=== PATIENT | male | born 1975 | race African-American/Black ===

== ENCOUNTER 2016-12-05 11:27 | Emergency (ER) | payer OTHER, MEDICAID ==
[~2016-12-05] VITALS: Ht 185.4 cm; Wt 104.3 kg
[~2016-12-05 11:27] MED LIST: CEPHALEXIN500 MG ORAL; HM DOUBLE ANT28.4 G1 TP; IBUPROFEN800 MG ORAL; NKM
[2016-12-05 11:40] VITALS: BP 127/75
[2016-12-05 12:18] VITALS: BP 127/75
--- NOTE | 2016-12-05 12:20 | Emergency Room Report ---
History of Present Illness General Chief Complaint: Sore Throat Source: Patient Present Illness HPI 41-year-old male presents to the emergency department complaining of intermittent cough with mucus in addition to sore throat, nasal congestion times one week. currently pt. reports no pain. Patient denies fevers or chills he denies neck pain or stiffness denies headache, and states he is up-to-date with vaccinations and has no significant past medical history other than musculoskeletal injuries. he denies recent travel. Denies CP, Palpitations, LOC , AMS, dizziness, Changes in Vision, Sensation, paresthesias, or a sudden severe headache. Allergies: Coded Allergies: No Known Allergies (Unverified , 09/08/12) Patient History Past Medical History: see triage record Past Surgical History: none Pertinent Family History: none Immunizations: UTD Reviewed Nursing Documentation: PMH: Agreed, PSxH: Agreed Nursing Documentation-PMH Past Medical History: No Stated History Review of Systems All Other Systems: negative except mentioned in HPI Physical Exam Vital Signs Date Time Temp Pulse Resp B/P (MAP) Pulse Ox O2 Delivery O2 Flow Rate FiO2 12/05/16 11:34 99.0 76 14 127/75 98 Room Air Sp02 EP Interpretation: reviewed, normal General Appearance: no apparent distress, alert, GCS 15, non-toxic Head: normocephalic, atraumatic Eyes: bilateral eye normal inspection, bilateral eye PERRL ENT: hearing grossly normal, normal voice, TMs + canals normal, uvula midline, moist mucus membranes, nasal congestion, pharyngeal erythema Neck: full range of motion, supple/symm/no masses Respiratory: chest non-tender, lungs clear, normal breath sounds, speaking full sentences Cardiovascular #1: regular rate, rhythm Musculoskeletal: back normal, gait/station normal, normal range of motion, non- tender Neurologic: alert, oriented x3, responsive, motor strength/tone normal, sensory intact, speech normal Skin: normal color, no rash, warm/dry, well hydrated Lymphatic: no adenopathy Medical Decision Making PA Attestation Dr. jaime is my supervising Physician whom patient management has been discussed with. Diagnostic Impression: Primary Impression: Upper respiratory infection, viral ER Course 41-year-old male presents to the emergency department complaining of intermittent cough with mucus in addition to sore throat, nasal congestion times one week. currently pt. reports no pain. Patient denies fevers or chills he denies neck pain or stiffness denies headache, and states he is up-to-date with vaccinations and has no significant past medical history other than musculoskeletal injuries. he denies recent travel. Denies CP, Palpitations, LOC , AMS, dizziness, Changes in Vision, Sensation, paresthesias, or a sudden severe headache. Ddx considered but are not limited to URI, pneumonia, PE, strep pharyngitis, meningitis. Vital signs: Pt. is afebrile, the remaining VS are WNL H&PE are most consistent with URI- no meningeal signs, oropharynx is not involved, no evidence of bacterial infection at this time. ORDERS: none required at this time, the diagnosis is clinical ED INTERVENTIONS: None required at this time. --PT. EDUCATION: Discussed antibiotic resistance with inappropriate prescribing of antibiotics for viral illnesses. Discussed signs and symptoms to indicate viral illness versus bacterial illness. DISCHARGE: At this time pt. is stable for d/c to home. Will provide printed patient care instructions, and any necessary prescriptions. Care plan and follow up instructions have been discussed with the patient prior to discharge. Last Vital Signs Date Time Temp Pulse Resp B/P (MAP) Pulse Ox O2 Delivery O2 Flow Rate FiO2 12/05/16 11:40 99.0 14 127/75 98 Room Air 12/05/16 11:34 76 Disposition: HOME, SELF-CARE Condition: Stable Scripts Guaifenesin (Guaifenesin) 1,200 Mg Tab.er.12h 1200 MG PO Q12HR for 10 Days, #20 TAB Prov: Jazlyn Dao 12/05/16 Codeine/Promethazine Hcl* (PROMETHAZINE-CODEINE SYRUP*) 118 Ml Syrup 5 ML ORAL Q6H Y for For Cough, #120 ML 0 Refills Prov: Jazlyn Dao 12/05/16 Referrals: NON PHYSICIAN (PCP) Departure Forms: Return to Work Return to Work Date: Dec 07, 2016 Work Restrictions: None Return to Full Activity: Dec 07, 2016 Patient Instructions: Upper Respiratory Infection, Adult Additional Instructions: Take medications as directed. Follow up with a Primary Care Provider in 3-5 days, even if your symptoms have resolved. --Please review list of primary care clinics, if you do not already have a primary care provider Return sooner to ED if new symptoms occur, or current symptoms become worse. Do not drink alcohol, drive, or operate heavy machinery while taking Cough Syrup as this may cause drowsiness. - Please note that this Emergency Department Report was dictated using [employer] technology software, occasionally this can lead to erroneous entry secondary to interpretation by the dictation equipment. Jazlyn Dao Dec 05, 2016 12:20
[2016-12-05] MEDS ORDERED: PROMETHAZINE-C118 M1 ORAL (12:21)
[2016-12-05] MEDS ORDERED: GUAIFENESIN1200 MG PO (12:21)
== END 2016-12-05 12:30 | disposition home or self-care (01) ==
LOC: EMR 12:13
DX: J06.9 Acute upper respiratory infection, unspecified (principal)
CPT/HCPCS: 99283

== ENCOUNTER 2017-06-11 07:00 | Emergency (ER) | payer MEDICAID, OTHER ==
[~2017-06-11] VITALS: Ht 188 cm; Wt 102.1 kg
[~2017-06-11 07:00] MED LIST changes: +GUAIFENESIN1200 MG PO; +PROMETHAZINE-C118 M1 ORAL
[2017-06-11 07:20] VITALS: BP 124/73
[2017-06-11] MEDS ORDERED: HYDROcodone/Acetamin 10/325 tab ORAL ONE (07:30)
[2017-06-11] MEDS ORDERED: Methocarbamol 750mg tab ORAL ONE (07:30)
[2017-06-11] MEDS ORDERED: Ketorolac 60mg Inj IM ONE (07:30)
[2017-06-11] MEDS ORDERED: ACETAMINOPHEN-1 EAC1 ORAL (07:58)
[2017-06-11] MEDS ORDERED: ROBAXIN-750750 MG PO (07:58)
[2017-06-11] MEDS ORDERED: IBUPROFEN600 MG ORAL (07:58)
[2017-06-11 08:00] VITALS: BP 124/73
--- NOTE | 2017-06-11 08:19 | Emergency Room Report ---
History of Present Illness General Chief Complaint: Lower Back Pain or Injury Source: Patient Present Illness HPI Patient presents with left lower back pain He was eating something down did not give specifics of the object however about 1 foot off the floor patient was turning to the left And had increased pain to the left lower back region This happened about 1:00 in the afternoon yesterday He has been having increased spasming and discomfort since then denies any Loss of control of bowel or urination denies any paresthesia Denies any chest pain or short of breath Allergies: Coded Allergies: No Known Allergies (Unverified , 06/11/17) Patient History Past Medical History: see triage record Pertinent Family History: none Reviewed Nursing Documentation: PMH: Agreed; PSxH: Agreed Nursing Documentation-PMH Past Medical History: No Stated History Review of Systems All Other Systems: negative except mentioned in HPI Physical Exam Vital Signs Date Time Temp Pulse Resp B/P (MAP) Pulse Ox O2 Delivery O2 Flow Rate FiO2 06/11/17 07:06 97.8 59 16 124/73 98 Room Air 97.9 Sp02 EP Interpretation: reviewed, normal General Appearance: mild distress - In acute pain Head: normocephalic, atraumatic Eyes: bilateral eye PERRL, bilateral eye EOMI ENT: normal pharynx, no angioedema Neck: full range of motion, supple Respiratory: lungs clear Cardiovascular #1: regular rate, rhythm Gastrointestinal: non tender, soft Musculoskeletal: other - Increased spasming in the left para spinal region, tender on palpation L3-4 region, midline no step-off patient able to ambulate no obvious focal weakness Neurologic: alert, oriented x3, responsive, zipper ironer III-XII nml as tested Skin: normal color, no rash Lymphatic: no adenopathy Medical Decision Making Diagnostic Impression: Primary Impression: Low back pain ER Course Multiple differentials were considered Including but not limited to neurological, neurosurgical orthopedic, musculoskeletal pathology Patient's mechanism of injury appears to be consistent with muscle skeletal ligamental pathology There was no acute trauma and imaging has not been initially emergently obtained And patient will have conservative outpatient trial Last Vital Signs Date Time Temp Pulse Resp B/P (MAP) Pulse Ox O2 Delivery O2 Flow Rate FiO2 06/11/17 08:00 97.9 16 124/73 98 Room Air 208.2 06/11/17 07:06 59 Status: improved Disposition: HOME, SELF-CARE Condition: Improved Scripts Acetaminophen With Codeine (T#3) (TYLENOL #3 TAB*) Y Tab 1 TAB ORAL Q8H PRN for For Pain, #10 TAB Prov: Cortez Travis DO 06/11/17 Methocarbamol* (ROBAXIN-750*) 750 Mg Tablet 750 MG PO TID, #21 TAB 0 Refills Prov: Cortez Travis DO 06/11/17 Ibuprofen* (MOTRIN*) 600 Mg Tablet 600 MG ORAL Q8H PRN for For Pain, #20 TAB 0 Refills Prov: Cortez Travis DO 06/11/17 Referrals: NON PHYSICIAN (PCP) Patient Instructions: Lumbosacral Strain, Back Pain, Adult Additional Instructions: Patient is provided with the discharge instructions notified to follow up with primary doctor in the next 2-3 days otherwise return to the er with any worsening symptoms. Please note that this report is being documented using [employer] technology. This can lead to erroneous entry secondary to incorrect interpretation by the dictating instrument. Cortez Travis DO June 11, 2017 08:19
== END 2017-06-11 08:00 | disposition home or self-care (01) ==
LOC: EMR 07:20
DX: M54.5 Low back pain (principal)
CPT/HCPCS: 96372; 99284

== ENCOUNTER 2017-09-03 02:44 | Emergency (ER) | payer OTHER ==
[~2017-09-03] VITALS: Ht 185.4 cm; Wt 133.8 kg
[~2017-09-03 02:44] MED LIST changes: +ACETAMINOPHEN-1 EAC1 ORAL; +IBUPROFEN600 MG ORAL; +ROBAXIN-750750 MG PO
[2017-09-03 03:07] VITALS: BP 124/60
--- NOTE | 2017-09-03 03:52 | Emergency Room Report ---
History of Present Illness General Chief Complaint: General Complaint Source: Patient Present Illness HPI This patient is here c/o abd discomfort due to no bm for three days. He has had similar occasionally in the past. Normal flatus. Normal eating with fruits and vegetables (no change.) No fever, no trauma. His back "pain" is not back pain but he feels achy all over abd/back due to feeling bloated due to no bm. No vomiting. Normal daily activities. PMH: none Meds: none Allergies: Coded Allergies: No Known Allergies (Unverified , 06/11/17) Nursing Documentation-PMH Past Medical History: No Stated History Review of Systems Constitutional: Denies: fever Eye: Denies: acuity changes Respiratory: Denies: cough, shortness of breath Cardiovascular: Denies: chest pain Gastrointestinal: Denies: nausea, vomiting Skin: Denies: rash Neurological: Denies: headache Physical Exam Vital Signs Date Time Temp Pulse Resp B/P (MAP) Pulse Ox O2 Delivery O2 Flow Rate FiO2 09/03/17 02:57 98.0 70 16 122/60 99 Room Air 98.1 General Appearance: well appearing, no apparent distress Head: normocephalic, atraumatic ENT: hearing grossly normal, normal voice Neck: full range of motion, supple Respiratory: no respiratory distress, speaking full sentences Cardiovascular #1: normal inspection Gastrointestinal: normal inspection, normal bowel sounds, non tender, soft, no mass Musculoskeletal: normal inspection, no calf tenderness Neurologic: alert, normal gait Psychiatric: mood/affect normal Skin: no rash Medical Decision Making Diagnostic Impression: Primary Impression: Abdominal pain Last Vital Signs Date Time Temp Pulse Resp B/P (MAP) Pulse Ox O2 Delivery O2 Flow Rate FiO2 09/03/17 03:07 98.1 74 16 124/60 99 Room Air 98.1 Disposition: HOME, SELF-CARE Condition: Stable Referrals: NOT CHOSEN IPA/MD,REFERRING (PCP) Patient Instructions: Abdominal Pain, Adult Additional Instructions: 1. OK to try Benadryl 25-50 mg. at night to sleep. 2. OK to try Simethicone (Gas-X) 160 mg. as needed for gas pains. 3. Add psyllium (fiber) to diet. Metamucil. 4. Fruits, vegetables, water, exercise, and limit rice/bread. Maikol Shah M.D. Sep 03, 2017 03:52
[2017-09-03 04:07] VITALS: BP 124/60
== END 2017-09-03 04:10 | disposition home or self-care (01) ==
LOC: EMR 03:40
DX: R10.9 Unspecified abdominal pain (principal)
CPT/HCPCS: 99283

== ENCOUNTER 2018-07-30 16:11 | Emergency (ER) | payer OTHER ==
[~2018-07-30] VITALS: Ht 185.4 cm; Wt 111.1 kg
--- NOTE | 2018-07-30 16:46 | NUR ---
ED Nurse Note:md doing I/D of small suprapubic abscess. pt tolerating well, sig other at bedside
[2018-07-30] MEDS ORDERED: BACTRIM DS TAB1 EAC1 ORAL (16:57)
[2018-07-30] MEDS ORDERED: ACETAMINOPHEN-1 EAC1 ORAL (16:57)
[2018-07-30] MEDS ORDERED: CEPHALEXIN500 MG ORAL (16:57)
[2018-07-30] MEDS ORDERED: Bacitracin Oint UD TOPIC ONE (17:00)
--- NOTE | 2018-07-30 17:16 | NUR ---
ED Nurse Note:PT WITH BACITRACIN APPLIED WITH BANDADE COVERING PT TOLERATES WELL. DESIRES TO HAVE PAIN MEDS PRIOR TO LEAVING SIG OTHER IS DRIVING HIM PER PT. MD AWARE AND TO ORDER.
[2018-07-30 17:28] VITALS: BP 127/80
[2018-07-30] MEDS ORDERED: Tylenol #3 tab (300mg/30mg) ORAL ONE (17:30)
--- NOTE | 2018-07-30 19:04 | Emergency Room Report ---
History of Present Illness General Chief Complaint: Skin Rash/Abscess Source: Patient Present Illness HPI [id number] male presents ED for evaluation. Patient walked in complaining of pain and swelling to the lower abdomen. States that it developed after shaving his genital area a week ago and developed a abscess. States it was draining somewhat. Pain is dull, 8 out of 10, nonradiating. Denies fevers or chills. No other aggravating relieving factors. Denies any other associated symptoms Allergies: Coded Allergies: No Known Allergies (Unverified , 06/11/17) Patient History Past Medical History: none Past Surgical History: none Pertinent Family History: none Social History: Denies: smoking, alcohol use, drug use Immunizations: UTD Reviewed Nursing Documentation: PMH: Agreed; PSxH: Agreed Nursing Documentation-PMH Past Medical History: No Stated History Review of Systems All Other Systems: negative except mentioned in HPI Physical Exam Vital Signs Date Time Temp Pulse Resp B/P (MAP) Pulse Ox O2 Delivery O2 Flow Rate FiO2 07/30/18 16:16 98.4 72 19 127/80 (96) 96 Room Air Sp02 EP Interpretation: reviewed, normal General Appearance: no apparent distress, alert, GCS 15, non-toxic Head: normocephalic Eyes: bilateral eye normal inspection, bilateral eye PERRL ENT: normal ENT inspection Neck: normal inspection Respiratory: normal inspection Cardiovascular #1: normal inspection Gastrointestinal: normal inspection Rectal: deferred Genitourinary: no CVA tenderness Musculoskeletal: normal inspection Neurologic: alert, oriented x3, responsive, motor strength/tone normal, sensory intact, speech normal Psychiatric: normal inspection Skin: other - abscess to suprapubic region. pustular head with fluctuance, discharge. no surrounding erythema/induration Lymphatic: normal inspection Procedures Incision and Drainage Incision and Drainage : Consent: Verbal Blade Size: 11 I & D Procedure: betadine prep, sterile drapes applied, sterile dressing applied Wound Location: other - suprapubic Wound's Depth, Shape: other - abscess Wound Explored: purulent discharge Anesthesia: Lidocaine w/ Epi Splint Applied?: No Sling Applied?: No Patient Tolerated: Well Complications: None Medical Decision Making Diagnostic Impression: Primary Impression: Abscess ER Course Hospital Course 43 yo M presents with abscess to suprapubic area Clinical course Patient placed on stretcher. After initial history and physical I anesthetized with lidocaine. abscess drained without complication. bacitracin/Dressing applied Given Tylenol No. 3 for pain. Discussed findings with patient. Will discharge to home with antibiotics. Warm compresses. Safe for discharge with close outpatient follow-up. Will provide referrals Diagnosis - abscess Stable and discharged to home with prescription for tylenol #3, bactrim, Keflex. wound Care instructions given. Followup with PMD. Return to ED if any signs of infection develop Last Vital Signs Date Time Temp Pulse Resp B/P (MAP) Pulse Ox O2 Delivery O2 Flow Rate FiO2 07/30/18 17:28 98.4 78 19 127/80 99 Room Air Status: improved Disposition: HOME, SELF-CARE Condition: Stable Scripts Acetaminophen With Codeine (T#3) (TYLENOL #3 TAB*) Y Tab 1 TAB ORAL Q8H PRN for For Pain, #12 TAB Prov: Julien Underwood MD 07/30/18 Trimethoprim/Sulfamethoxazole 160/800* (BACTRIM DS TABLET*) 1 Each Tablet 1 TAB ORAL Q12H, #14 TAB 0 Refills Prov: Julien Underwood MD 07/30/18 Cephalexin* (KEFLEX*) 500 Mg Capsule 500 MG ORAL EVERY 6 HOURS for 7 Days, CAP Prov: Julien Underwood MD 07/30/18 Referrals: NON PHYSICIAN (PCP) Leobardo [facility]. [facility] Patient Instructions: Abscess Additional Instructions: warm compresses. take antibiotics as directed. followup with PMD Julien Underwood MD Jul 30, 2018 19:04
== END 2018-07-30 17:20 | disposition home or self-care (01) ==
LOC: EMR 16:52
DX: L02.211 Cutaneous abscess of abdominal wall (principal)
CPT/HCPCS: 99283

== ENCOUNTER 2018-11-22 17:51 | Emergency (ER) | payer OTHER ==
[~2018-11-22] VITALS: Ht 185.4 cm; Wt 111.1 kg
[~2018-11-22 17:51] MED LIST changes: +BACTRIM DS TAB1 EAC1 ORAL
[2018-11-22 18:00] VITALS: BP 127/69
--- NOTE | 2018-11-22 18:35 | NUR ---
ER DISCHARGE NOTE: Patient is cleared to be discharged per ERMD, pt is aox4, on room air, with stable vital signs. pt was given dc and prescription instructions, pt was able to verbalize understanding, pt is able to ambulate with steady gait. pt took all belongings.
--- NOTE | 2018-11-22 18:36 | Emergency Room Report ---
History of Present Illness General Chief Complaint: Flu Like Symptoms Source: Patient Present Illness HPI 43-year-old male with no significant past medical history here complaining of 1 day of 5 out of 10 sore throat, cough and congestion, body ache, and chills. Denies abdominal pain, nausea vomiting. Has not taken medication for symptom relief. Vitals are within normal limits, no fevers elicited. Denies any phlegm production when coughing. No white exudate noted. Denies chest pain, wheezing, shortness of breath, palpitation, and other associated symptoms. Patient denies having history of tobacco smoke. Denies headache, fever, neck stiffness, photophobia Allergies: Coded Allergies: No Known Allergies (Unverified , 06/11/17) Patient History Past Medical History: see triage record Past Surgical History: unable to obtain Pertinent Family History: none Immunizations: UTD Reviewed Nursing Documentation: PMH: Agreed; PSxH: Agreed Nursing Documentation-PMH Past Medical History: No Stated History Review of Systems All Other Systems: negative except mentioned in HPI Physical Exam Vital Signs Date Time Temp Pulse Resp B/P (MAP) Pulse Ox O2 Delivery O2 Flow Rate FiO2 11/22/18 18:00 99.0 73 18 127/69 (88) 97 Room Air Sp02 EP Interpretation: reviewed, normal General Appearance: no apparent distress, alert, GCS 15, non-toxic Head: normocephalic, atraumatic Eyes: bilateral eye normal inspection, bilateral eye PERRL ENT: no angioedema, normal voice, TMs + canals normal, uvula midline, pharyngeal erythema Neck: full range of motion, no meningismus, supple/symm/no masses Respiratory: chest non-tender, lungs clear, normal breath sounds, no wheezing, speaking full sentences Cardiovascular #1: regular rate, rhythm, no edema, no murmur Gastrointestinal: non tender, soft Genitourinary: no CVA tenderness Musculoskeletal: normal inspection, back normal, digits/nails normal Psychiatric: normal inspection, memory normal Skin: no rash Lymphatic: normal inspection, no adenopathy Medical Decision Making PA Attestation All my diagnosis and treatment plans were reviewed ad discussed with my supervising physician Dr. Edwards Diagnostic Impression: Primary Impression: URI (upper respiratory infection) ER Course 43-year-old male with no significant past medical history here complaining of 1 day of 5 out of 10 sore throat, cough and congestion, body ache, and chills. Denies abdominal pain, nausea vomiting. Has not taken medication for symptom relief. Vitals are within normal limits, no fevers elicited. Denies any phlegm production when coughing. No white exudate noted. Denies chest pain, wheezing, shortness of breath, palpitation, and other associated symptoms. Patient denies having history of tobacco smoke. Denies headache, fever, neck stiffness, photophobia Ddx considered but are not limited to: strep pharyngitis, URI, tonsillitis, peritonsillar abscess, influneza Vital signs: are WNL, pt. is afebrile H&PE are most consistent with: URI viral ORDERS: Phenergan, Flonase, ibuprofen ED INTERVENTIONS: None required at this time. DISCHARGE: At this time pt. is stable for d/c to home. Will provide printed patient care instructions, and any necessary prescriptions. Care plan and follow up instructions have been discussed with the patient prior to discharge. Patient will follow with primary care provider, and return to the emergency room if no improvement Last Vital Signs Date Time Temp Pulse Resp B/P (MAP) Pulse Ox O2 Delivery O2 Flow Rate FiO2 11/22/18 18:00 99.0 73 18 127/69 (88) 97 Room Air Disposition: HOME, SELF-CARE Condition: Stable Scripts Promethazine/Dextromethorphan (Promethazine-Dm Syrup) 473 Ml Syrup 1 TSP ORAL Q6H PRN for For Cough, #118 ML 0 Refills Prov: Bhavin Yung 11/22/18 Ibuprofen* (MOTRIN*) 600 Mg Tablet 600 MG ORAL Q6H PRN for For Pain, #30 TAB 0 Refills Prov: Bhavin Yung 11/22/18 Fluticasone Propionate (Flonase Allergy Relief) 9.9 Ml [place].susp 2 PUFFS NS BID, #10 ML Prov: Bhavin Yung 11/22/18 Patient Instructions: Upper Respiratory Infection, Adult, [id number] Additional Instructions: Take medication as a follow-up with your primary care provider, if worsening symptoms return to the emergency room Bhavin Yung Nov 22, 2018 18:36
[2018-11-22] MEDS ORDERED: PROMETHAZI6.25 MG/1 ORAL (18:38)
[2018-11-22] MEDS ORDERED: FLONASE ALLERG9.9 ML NS (18:38)
[2018-11-22] MEDS ORDERED: IBUPROFEN600 MG ORAL (18:38)
[2018-11-22] MEDS ORDERED: PHENERGAN6.25 MG/5 ORAL (18:42)
[2018-11-22 19:07] VITALS: BP 127/69
== END 2018-11-22 18:45 | disposition home or self-care (01) ==
LOC: EMR 18:30
DX: J06.9 Acute upper respiratory infection, unspecified (principal)
CPT/HCPCS: 99282

== ENCOUNTER 2019-05-26 17:18 | Emergency (ER) | payer BC, OTHER ==
[~2019-05-26] VITALS: Ht 185.4 cm; Wt 108.9 kg
[~2019-05-26 17:18] MED LIST changes: +FLONASE ALLERG9.9 ML NS; +PHENERGAN6.25 MG/5 ORAL; +PROMETHAZI6.25 MG/1 ORAL
[2019-05-26 17:36] VITALS: BP 137/73
[2019-05-26] MEDS ORDERED: HYDROcodone/Acetamin 7.5/325 tab ORAL ONE (18:00)
--- NOTE | 2019-05-26 18:05 | Emergency Room Report ---
History of Present Illness General Chief Complaint: Nosebleed Source: Patient Present Illness HPI 44-year-old male presents to the emergency department complaining of 3 out of 10 severity localized pain to the bridge of his nose in addition to epistaxis approximately 1 hour prior to arrival. Patient reports a large avocado fell and struck him in the face. Patient states he was using a fruit pulling device when the incident happened. he reports LOC for "several seconds" he denies falling to the ground he denies midline neck or back pain. He denies taking blood thinning medications or having a history of blood dyscrasia. He reports pain is exacerbated upon palpation. Patient states that nosebleed has stopped for the meantime. No other aggravating or relieving factors. Denies dizziness, MCINTOSH or visual changes. Allergies: Coded Allergies: No Known Allergies (Unverified , 06/11/17) COVID-19 Screening Contact w/high risk pt: No Recent Travel to affected area: No Experienced COVID-19 symptoms?: No Patient History Past Medical History: see triage record Past Surgical History: none Pertinent Family History: none Immunizations: UTD Reviewed Nursing Documentation: PMH: Agreed; PSxH: Agreed Nursing Documentation-PMH Past Medical History: No Stated History Review of Systems All Other Systems: negative except mentioned in HPI Physical Exam Vital Signs Date Time Temp Pulse Resp B/P (MAP) Pulse Ox O2 Delivery O2 Flow Rate FiO2 05/26/19 17:22 98.1 84 18 141/79 (99) 100 Room Air Sp02 EP Interpretation: reviewed, normal General Appearance: no apparent distress, alert, GCS 15, non-toxic Head: normocephalic, other - Evidence of previous epistasis. No septal hematomas visualized. Tenderness to the nasal bridge with mild bruising. Soft tissue swelling noted Eyes: bilateral eye normal inspection, bilateral eye PERRL, bilateral eye EOMI ENT: hearing grossly normal, normal voice Neck: full range of motion, no bony tend, other - No midline tenderness Respiratory: lungs clear, normal breath sounds, speaking full sentences Cardiovascular #1: regular rate, rhythm Musculoskeletal: back normal, normal range of motion, gait/station normal, non- tender Neurologic: alert, motor strength/tone normal, oriented x3, sensory intact, responsive, speech normal Psychiatric: judgement/insight normal Skin: Ecchymosis/Bruising - to the nasal bridge. Medical Decision Making PA Attestation Dr. Dennis Is my supervising Physician whom patient management has been discussed with. Diagnostic Impression: Primary Impression: Epistaxis Additional Impression: Nasal contusion Qualified Codes: S00.33XA - Contusion of nose, initial encounter ER Course 44-year-old male presents to the emergency department complaining of 3 out of 10 severity localized pain to the bridge of his nose in addition to epistaxis approximately 1 hour prior to arrival. Patient reports a large avocado fell and struck him in the face. Patient states he was using a fruit pulling device when the incident happened. he reports LOC for "several seconds" he denies falling to the ground he denies midline neck or back pain. He denies taking blood thinning medications or having a history of blood dyscrasia. He reports pain is exacerbated upon palpation. Patient states that nosebleed has stopped for the meantime. No other aggravating or relieving factors. Denies dizziness, MCINTOSH or visual changes. Ddx considered but are not limited to Fracture, dislocation, contusion, orbital entrapment just to name a few. Vital signs: are WNL, pt. is afebrile H&PE are most consistent with musculoskeletal injury will perform imaging to r/ o fractures. no evidence of septal hematoma at this time. ORDERS: - CT Facial bones non Contrasted: ED INTERVENTIONS: - Prole PO DISCHARGE: At this time pt. is stable for d/c to home. Will provide printed patient care instructions, and any necessary prescriptions. Care plan and follow up instructions have been discussed with the patient prior to discharge. CT/MRI/US Diagnostic Results CT/MRI/US Diagnostic Results : Imaging Test Ordered: CT facial bones No contrast Impression " No acute fractures noted and paranasal sinuses are clear." Per official radiology report- Please see report for specific details. Last Vital Signs Date Time Temp Pulse Resp B/P (MAP) Pulse Ox O2 Delivery O2 Flow Rate FiO2 05/26/19 17:36 98.1 77 20 137/73 98 Room Air Disposition: HOME, SELF-CARE Condition: Unknown Referrals: [facility] Patient Instructions: Nosebleed, [id number] Additional Instructions: Take medications as directed. Follow up with a Primary Care Provider in 3-5 days, even if your symptoms have resolved. --Please review list of primary care clinics, if you do not already have a primary care provider Return sooner to ED if new symptoms occur, or current symptoms become worse. - Please note that this Emergency Department Report was dictated using [employer] crew lines person technology software, occasionally this can lead to erroneous entry secondary to interpretation by the dictation equipment. Jazlyn Dao May 26, 2019 18:05
--- NOTE | 2019-05-26 18:42 | Diagnostic Imaging Report ---
EXAM: CT Maxillofacial Without Intravenous Contrast CLINICAL HISTORY: PAIN TECHNIQUE: Axial computed tomography images of the face without intravenous contrast. CTDI is 30.6 mGy and DLP is 750.2 mGy-cm. One or more of the following dose reduction techniques were used: automated exposure control, adjustment of the mA and/or kV according to patient size, use of iterative reconstruction technique. COMPARISON: No relevant prior studies available. FINDINGS: Bones/joints: No acute fracture. Soft tissues: Unremarkable. Orbits: Unremarkable. Sinuses: Unremarkable. No air-fluid levels. IMPRESSION: No evidence for fracture facial bones. The paranasal sinuses are clear.
[2019-05-26] MEDS ORDERED: NEXAFED30 MG ORAL (19:03)
[2019-05-26 19:07] VITALS: BP 132/71
== END 2019-05-26 19:08 | disposition home or self-care (01) ==
LOC: EMR 17:46
DX: R04.0 Epistaxis (principal); S00.33XA Contusion of nose, initial encounter; W20.8XXA Other cause of strike by thrown, projected or falling object, initial encounter; Y92.9 Unspecified place or not applicable
CPT/HCPCS: 70486; 99284

== ENCOUNTER 2020-04-14 21:44 | Emergency (ER) | payer BC ==
[~2020-04-14] VITALS: Ht 185.4 cm; Wt 108.9 kg
[~2020-04-14 21:44] MED LIST changes: +NEXAFED30 MG ORAL
[2020-04-14 21:49] VITALS: BP 105/53
--- NOTE | 2020-04-14 22:01 | NUR ---
pt exercising on concrete slab around 1330 this afternoon. pt slipped and hit front of R kohli against concrete. pt states he controlled bleeding at home with peroxide, requesting evaluation to rule out infections. pt able to move bilateral extremities, no weakness noted, steady ambulation. pt denies cough/fever/chills/nausea/vomiting/diarrhea. pt denies pmh, denies allergies to medication. 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
[2020-04-14] MEDS ORDERED: Neosporin Oint Ud Pkt TOPIC ONE (22:06)
[2020-04-14] MEDS ORDERED: CEPHALEXIN500 MG ORAL (22:21)
--- NOTE | 2020-04-14 22:21 | Emergency Room Report ---
History of Present Illness General Chief Complaint: Lower Extremity Injury Source: Patient Present Illness HPI This is a 45-year-old male with no significant past medical history. He presents with chief complaint of laceration to the right lower extremity. Earlier today at the gym, he was doing high jump onto a platform. He missed an scrape the proximal kohli area against the platform. He sustained a laceration. No active bleeding. No foreign body. Tetanus was last year. Complained of 5 out of 10 pain. Nothing made it better. Nothing made it worse. 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 Patient History Past Medical History: see triage record, old chart reviewed Past Surgical History: none Pertinent Family History: none Social History: Denies: smoking Immunizations: UTD Reviewed Nursing Documentation: PMH: Agreed; PSxH: Agreed Nursing Documentation-PMH Past Medical History: No Stated History Review of Systems Eye: Denies: eye pain, blurred vision ENT: Denies: ear pain, nose congestion, throat swelling Respiratory: Denies: cough, shortness of breath Cardiovascular: Denies: chest pain, palpitations Gastrointestinal: Denies: abdominal pain, diarrhea, nausea, vomiting Musculoskeletal: Denies: back pain, joint pain Skin: Denies: rash Neurological: Denies: headache, numbness Endocrine: Denies: increased thirst, increased urine Hematologic/Lymphatic: Denies: easy bruising All Other Systems: negative except mentioned in HPI Physical Exam Vital Signs Date Time Temp Pulse Resp B/P (MAP) Pulse Ox O2 Delivery O2 Flow Rate FiO2 04/14/20 21:49 98.8 65 18 105/53 (70) 96 Room Air Vitals normal Sp02 EP Interpretation: reviewed, normal General Appearance: well appearing, no apparent distress, alert Head: normocephalic, atraumatic Eyes: bilateral eye PERRL, bilateral eye EOMI ENT: hearing grossly normal, normal pharynx Neck: full range of motion, supple, no meningismus Respiratory: chest non-tender, lungs clear, normal breath sounds Cardiovascular #1: regular rate, rhythm, no murmur Gastrointestinal: normal bowel sounds, non tender, no mass, no organomegaly, no bruit, non-distended Musculoskeletal: back normal, normal range of motion, gait/station normal, other - Right lower extremity: Over the proximal tibia area there is a semicircular laceration of 2 cm. It is gaping with contused tissue. No foreign body. No tendon laceration. Psychiatric: mood/affect normal Procedures Laceration/Wound Repair Laceration/Wound Repair : Consent: Verbal Wound Location: lower extremity Wound's Depth, Shape: irregular, flap, contused tissue Wound Length (cm): 2 Wound Explored: clean Irrigated w/ Saline (ccs): 1000 Anesthesia: 1% Lidocaine Volume Anesthetic (ccs): 3 Wound Repaired With: sutures Suture Size/Type: 3:0, nylon Number of Sutures: 3 Patient Tolerated: Well Complications: None Medical Decision Making Diagnostic Impression: Primary Impression: Laceration of right lower leg Qualified Codes: S81.811A - Laceration without foreign body, right lower leg, initial encounter ER Course Patient presents with laceration to the lower extremity. No foreign body or tendon laceration. Low risk for infection. Last Vital Signs Date Time Temp Pulse Resp B/P (MAP) Pulse Ox O2 Delivery O2 Flow Rate FiO2 04/14/20 21:49 98.8 65 18 105/53 (70) 96 Room Air Status: improved Disposition: HOME, SELF-CARE Condition: Stable Scripts Cephalexin* (KEFLEX*) 500 Mg Capsule 500 MG ORAL TID, #15 CAP Prov: Oliver Todd MD 04/14/20 Referrals: NON PHYSICIAN (PCP) Additional Instructions: Keep wound clean. Follow-up with your doctor in 7 to 10 days for suture removal. Return if symptoms worsen. Oliver Todd MD Apr 14, 2020 22:21
== END 2020-04-14 22:24 | disposition home or self-care (01) ==
LOC: EMR 22:15
DX: S81.811A Laceration without foreign body, right lower leg, initial encounter (principal); X58.XXXA Exposure to other specified factors, initial encounter; Y92.9 Unspecified place or not applicable
CPT/HCPCS: 99282